=== PATIENT | female | born 1950 | race Caucasian/White ===

== ENCOUNTER → 2017-06-18 | Outpatient (CLI) | payer OTHER | END | disposition home or self-care (01) | LOC: RAH 12:19 | PROVIDERS: ATTEND Obstetrics & Gynecology | DX: Z12.31 Encounter for screening mammogram for malignant neoplasm of breast (principal) | CPT/HCPCS: 77067 ==

== ENCOUNTER → 2020-03-31 | Outpatient (CLI) | payer OTHER | END | disposition home or self-care (01) | LOC: RAH 11:13 | PROVIDERS: ATTEND Obstetrics & Gynecology | DX: Z12.31 Encounter for screening mammogram for malignant neoplasm of breast (principal) | CPT/HCPCS: 77067 ==

== ENCOUNTER 2020-04-20 08:14 | Day surgery (SDC) | payer OTHER ==
[2020-04-19 11:56] LABS: BASOPHILS % (AUTO) 0.8 % (0.0-5.0); HEMATOCRIT 44.2 % (36-48); LYMPHOCYTES % (AUTO) 25.5 % (21.0-51.0); MEAN CORPUSCULAR HEMOGLOBIN 30.9 pg (27.0-33.0); MEAN CORPUSCULAR HGB CONC 32.8 g/dL (32.0-36.0); MEAN CORPUSCULAR VOLUME 94.2 fL (79-99); MONOCYTES % (AUTO) 5.6 % (3.0-13.0); NEUTROPHILS % (AUTO) 66.9 % (40.0-77.0); PLATELET COUNT (AUTO) 257 K/uL (130-400); RED BLOOD CELL COUNT(AUTO) 4.69 MIL/uL (4.00-5.50); RED CELL DISTRIBUTION WIDTH 13.2 % (11.0-15.5); WHITE BLOOD COUNT (AUTO) 8.3 K/uL (4.8-10.8)
[2020-04-19 12:07] LABS: CREATININE 0.9 mg/dL (0.5-1.5); POTASSIUM 4.4 mmol/L (3.5-5.1)
[2020-04-20] VITALS (20 sets, daily range): BP systolic 90–156; BP diastolic 48–93
[~2020-04-20] VITALS: Ht 152.4 cm; Wt 56.2 kg
[~2020-04-20 08:14] MED LIST: AMLO-257 PO; LACTATED RINGERS 1000ML 1,000 ML IV SCH; ROSU5TAB12 PO; SERT-438 PO
[2020-04-20] MEDS: CEFAZOLIN SODIUM 1 GM VIAL IVP SCH ×2 (09:30→11:20)
[2020-04-20] MEDS ORDERED: SUCCINYLCHOLINE CHLORIDE 20 MG/ML 10 ML VIAL ONE (10:51)
[2020-04-20] MEDS ORDERED: LIDOCAINE PF 100MG/5ML (2%) SYRINGE 5ML ONE (10:51)
[2020-04-20] MEDS ORDERED: GLYCOPYRROLATE 1 MG/5 ML SYRINGE ONE (10:52)
[2020-04-20] MEDS ORDERED: MIDAZOLAM HCL 1 MG/ML 2ML VIAL ONE (10:52)
[2020-04-20] MEDS ORDERED: DEXAMETHASONE SOD PHOSPHATE 10MG/ML 1ML VIAL ONE (10:52)
[2020-04-20] MEDS ORDERED: ROCURONIUM 10MG/1ML SYR 10 MG/ML ML ONE (10:52)
[2020-04-20] MEDS ORDERED: ONDANSETRON 4MG INJ ONE (10:52)
[2020-04-20] MEDS ORDERED: NEOSTIGMINE 5MG/5ML SYR IV ONE (10:52)
[2020-04-20] MEDS ORDERED: PROPOFOL 10 MG/ML 20ML VIAL IV ONE (10:52)
[2020-04-20] MEDS ORDERED: FENTANYL CITRATE PF 50 MCG/1 ML 2ML VIAL ONE (10:53)
[2020-04-20] MEDS ORDERED: EPHEDRINE SULFATE 50 MG/ML AMPULE ONE (11:19)
== END 2020-04-20 14:50 ==
LOC: DAH 08:14
PROVIDERS: ATTEND Orthopaedic Surgery
DX: M75.121 Complete rotator cuff tear or rupture of right shoulder, not specified as traumatic (principal); M19.011 Primary osteoarthritis, right shoulder; M75.51 Bursitis of right shoulder; I10 Essential (primary) hypertension; Z98.890 Other specified postprocedural states; Z79.899 Other long term (current) drug therapy; Z20.828 Contact with and (suspected) exposure to other viral communicable diseases
CPT/HCPCS: 29827; 36415; 64415; 76942; 80048; 85025; 93005; A4215; A4221; A4222; A4223; A4565; A4649 ×4; A4663; A4930; A5120; A6223; A6260; C1713 ×2; C9803; J0330; J0690; J1100; J2001; J2250; J2405; J2704; J2710; J3010; J3490 ×2; J7120; U0003

== ENCOUNTER → 2020-05-12 | Outpatient (CLI) | payer OTHER ==
[~2020-05-12] MED LIST changes: -LACTATED RINGERS 1000ML 1,000 ML IV SCH
== END | disposition home or self-care (01) ==
LOC: RAH 09:54
PROVIDERS: ATTEND Obstetrics & Gynecology
DX: R92.1 Mammographic calcification found on diagnostic imaging of breast (principal); R59.0 Localized enlarged lymph nodes; R92.0 Mammographic microcalcification found on diagnostic imaging of breast
CPT/HCPCS: 76641; 77065

== ENCOUNTER → 2022-04-03 | Outpatient (CLI) | payer OTHER | END | disposition home or self-care (01) | LOC: RAH 08:28 | PROVIDERS: ATTEND Obstetrics & Gynecology | DX: Z12.31 Encounter for screening mammogram for malignant neoplasm of breast (principal) | CPT/HCPCS: 77067 ==

== ENCOUNTER → 2023-05-09 | Outpatient (CLI) | payer OTHER | END | disposition home or self-care (01) | LOC: RAH 10:26 | PROVIDERS: ATTEND Obstetrics & Gynecology | DX: Z12.31 Encounter for screening mammogram for malignant neoplasm of breast (principal) | CPT/HCPCS: 77067 ==

== ENCOUNTER → 2024-02-11 | Outpatient (CLI) | payer OTHER ==
[~2024-02-11] MED LIST changes: +GADOTERATE MEGLUMINE 10 MMOL/20 ML VIAL IV ONE; -ROSU5TAB12 PO; +ROSU5TAB51 PO
--- NOTE | 2024-02-11 16:39 | HMCIMG ---
MRI BREAST WWO BILAT [facility] HISTORY: Microcalcifications and tenderness to left axilla COMPARISON: Mammogram from 05/09/2023 TECHNIQUE: MRI of the bilateral breasts was performed utilizing multiple pulse sequences in axial, coronal and sagittal planes. Patient was given 20 cc of Clariscan through intravenous route. Dynamic imaging technique was used. FINDINGS: Both breasts are moderately dense fibroglandular tissue. No definite MR evidence of mass lesion or abnormal enhancement is seen. No nipple retraction or skin thickening is seen. IMPRESSION: 1. Moderately dense breasts. No mass lesion or abnormal enhancement is seen. Yearly mammogram is recommended.
== END | disposition home or self-care (01) ==
LOC: RAH 13:37
PROVIDERS: ATTEND Internal Medicine
DX: R92.323 Mammographic fibroglandular density, bilateral breasts (principal); R92.0 Mammographic microcalcification found on diagnostic imaging of breast
CPT/HCPCS: C8908; A9575; 77049

== ENCOUNTER 2025-02-15 12:03 | Inpatient (IN) | payer OTHER ==
[~2025-02-15] VITALS: Ht 152.4 cm; Wt 55.3 kg
--- NOTE | 2025-02-15 12:09 | NUR ---
PATIENT IN ROOM
[2025-02-15 12:19] LABS: IMMATURE GRANULOCYTE ABSOLUTE 0.03 K/uL (0-1); NUCLEATED RED BLOOD CELLS 0.0 % (0.0-0.19); PLATELET COUNT (AUTO) 222 K/uL (130-400); RED BLOOD CELL COUNT(AUTO) 4.30 MIL/uL (4.00-5.50); RED CELL DISTRIBUTION WIDTH 13.0 % (11.0-15.5); WHITE BLOOD COUNT (AUTO) 8.3 K/uL (4.8-10.8)
[2025-02-15 12:33] LABS: CREATININE 1.0 mg/dL (0.5-1.0); GLOMERULAR FILTR. RATE CALC 58.0 mL/min (>90); GLUCOSE,RANDOM 130.0 mg/dL (70-105); SODIUM SERUM 140.0 mmol/L (136-145); UREA NITROGEN, BLOOD 15.0 mg/dL (7-18)
--- NOTE | 2025-02-15 12:40 | ERN ---
General Chief Complaint: Syncope Stated Complaint: SYNCOPE Time Seen by MD: 12:05 Source: patient History of Present Illness Initial Comments Patient is a 74-year-old female coming in after she had a syncopal episode today. Per patient she was standing hand all of the sudden she felt weak and passed out. She states he has been in her bottom did not hit her head. Allergies: Coded Allergies: No Known Drug Allergies (Verified Allergy, Unknown, 04/19/20) Home Meds Reported Medications Sertraline HCl (Sertraline HCl) 25 Mg Tablet, 25 MG PO DAILY, TAB 04/19/20 Rosuvastatin Calcium (Rosuvastatin Calcium) 5 Mg Tablet, 5 MG PO DAILY, TAB 04/19/20 Amlodipine Besylate (Amlodipine Besylate) 5 Mg Tablet, 5 MG PO DAILY, TAB 04/19/20 Past Medical History Past Medical History: GERD, High Cholesterol, Hypertension Past Surgical History: Appendectomy, Hysterectomy ROS Dictation CONSTITUTIONAL: No chills, no fever, no weakness, no diaphoresis, no malaise. HEAD/FACE: No signs of trauma. EENT: No eye pain, no blurred vision, no tearing, no double vision, no ear pain, no ear discharge, no nose pain, no nasal congestion, no throat pain, no throat swelling, no mouth pain. RESPIRATORY: No cough, no orthopnea, no SOB, no stridor, no wheezing. CARDIOVASCULAR: No chest pain, no edema, no palpitations, no syncope. GASTROINTESTINAL/ABDOMINAL: No abdominal pain, no constipation, no diarrhea, no nausea, no vomiting. GENITOURINARY: No abnormal discharge, no dysuria, no frequent urination, no hematuria. No complaints of pain in the genitals. MUSCULOSKELETAL: No back pain, no gout, no joint pain, no joint swelling, no muscle pain, no muscle stiffness, no neck pain. INTEGUMENTARY: No change in color, no change in hair/nails, no dryness, no lesion, no lumps, no rash. NEUROLOGICAL/PSYCH: No anxiety, not depressed, no emotional problem, no headache, no numbness, no pre-existing deficit, no history of seizures, no tremors, no weakness. HEMATOLOGIC/LYMPHATIC: Not anemic, no history of blood clots, no apparent bleeding, no bruising, glands not swollen. All Systems Negative, Except as Noted. Physical Exam Physical Exam Dictation VITAL SIGNS: Reviewed. GENERAL APPEARANCE: Alert, oriented x3, no acute distress, obese. HEAD AND FACE: Non-traumatic. EYES: PERRL, pink conjunctivas, eyelid no trauma, anterior chamber clear. EARS: Pinnas intact and no signs of trauma or erythema. Ear canals clear and no discharge. TMs no erythema. NOSE: No discharge, no bleeding. OROPHARYNX: Mouth normal, teeth no caries, tongue pink. Pharynx clear, no erythema. Tonsils no exudates, no abscesses noted. Mucous membrane moist. NECK: Supple, non-tender, no thyromegaly, no masses, no JVD, no bruits. BREAST: Deferred. CHEST: No tenderness, no crepitus, no paradoxical movement, no retractions. LUNGS: Clear, well-ventilated, symmetric, no rales, no wheezing, no rhonchi, no stridor, good breath sounds bilaterally. HEART: Regular rate, regular rhythm, no murmur, no gallops. VASCULAR: No peripheral edema. ABDOMEN: Soft, positive bowel sounds, nondistended, no guarding, nontender, no rebound, no masses no hepatomegaly, no splenomegaly, no Munoz's sign, no hernias. RECTAL: Deferred. GENITAL: Deferred. NEUROLOGICAL: Normal speech, gross motor function intact, gross sensory function intact. MUSCULOSKELETAL: Neck nontender, full range of motion, back nontender, full range of motion. EXTREMITIES: Nontender, full range of motion. SKIN: Color pink, dry, no turgor, no rash, no lacerations, no abrasions, no contusions. LYMPHATICS: Deferred. Results Laboratory and Microbiology Lab and Micro Result Laboratory Tests Test 02/15/25 12:14 02/15/25 12:40 White Blood Count 8.3 K/uL (4.8-10.8) Red Blood Count 4.30 MIL/uL (4.00-5.50) Hemoglobin 13.3 g/dL (12.0-16.0) Hematocrit 40.3 % (36-48) Mean Corpuscular Volume 93.7 fL (79-99) Mean Corpuscular Hemoglobin 30.9 pg (27.0-33.0) Mean Corpuscular Hemoglobin Concent 33.0 g/dL (32.0-36.0) Red Cell Distribution Width 13.0 % (11.0-15.5) Platelet Count 222 K/uL (130-400) Mean Platelet Volume 10.9 fL (7.5-10.5) H Immature Granulocyte % (Auto) 0.4 % (0-1) Neutrophils (%) (Auto) 54.7 % (40.0-77.0) Lymphocytes (%) (Auto) 34.2 % (21.0-51.0) Monocytes (%) (Auto) 7.4 % (3.0-13.0) Eosinophils (%) (Auto) 2.3 % (0.0-8.0) Basophils (%) (Auto) 1.0 % (0.0-5.0) Neutrophils # (Auto) 4.6 K/uL (1.8-7.7) Lymphocytes # (Auto) 2.9 K/uL (1.0-4.8) Monocytes # (Auto) 0.6 K/uL (0.1-1.0) Eosinophils # (Auto) 0.19 K/uL (0.00-0.70) Basophils # (Auto) 0.08 K/uL (0.00-0.20) Absolute Immature Granulocyte (auto 0.03 K/uL (0-1) Nucleated Red Blood Cells 0.0 % (0.0-0.19) Sodium Level 140 mmol/L (136-145) Potassium Level 3.9 mmol/L (3.5-5.1) Chloride Level 104 mmol/L (101-111) Carbon Dioxide Level 28 mmol/L (21-32) Blood Urea Nitrogen 15 mg/dL (7-18) Creatinine 1.0 mg/dL (0.5-1.0) Glomerular Filtration Rate Calc 58 mL/min (>90) Random Glucose 130 mg/dL (70-105) H Total Calcium 8.9 mg/dL (8.5-10.1) Magnesium Level 1.90 mg/dL (1.80-2.40) Troponin I High Sensitivity 6 ng/L (4-50) Urine Color YELLOW (YELLOW) Urine Appearance CLEAR (CLEAR) Urine pH 8.5 (5.0-8.0) H Urine Specific [place] 1.016 (1.001-1.031) Urine Protein 20 mg/dL (NEGATIVE) H Urine Glucose (UA) NEGATIVE mg/dL (NEGATIVE) Urine Ketones NEGATIVE mg/dL (NEGATIVE) Urine Occult Blood NEGATIVE (NEGATIVE) Urine Nitrate NEGATIVE (NEGATIVE) Urine Bilirubin NEGATIVE mg/dL (NEGATIVE) Urine Urobilinogen 0.2 mg/dL (0.2-1.0) Urine Leukocyte Esterase NEGATIVE Boris/uL Urine RBC 0-1 /HPF (0-1) Urine WBC 0-1 /HPF (0-1) Urine Squamous Epithelial Cells RARE /HPF (0-2) Urine Bacteria RARE /HPF (None Seen) Labs Reviewed?: Yes EKG/XRAY/US/CT/MRI EKG Comment 02/15/2025 time 12:02 p.m. Ventricular rate 44 Sinus bradycardia [place] [address] wave elevation or depression MDM MDM: Differential diagnosis: Syncope, bradycardia, Rationale: Tests considered and ordered secondary to shared decision making include: labs, ECG and radiology Previous outside records reviewed: Old ER visits. Risk of complication and/or morbidity or mortality of patient management: None Medications-Per medication reconciliation Need for hospitalization: Patient does meet criteria for hospitalization. Need for emergency major/minor surgery: No There are no social concerns with this patient. Prescription drug management Prescriptions will include symptomatic care Patient's prior external medical records from other ER visits were reviewed by me as indicated. Prior testing and results from previous visits were reviewed. Prior tests were taken into account with medical decision making and resource utilization, independent historian/historians were used to obtain complete medical history. I independently interpreted the test that were performed, results were reviewed by me and considered findings on radiology if ordered. Medical management and examination interpretation discussions were had by me with other qualified healthcare professionals as indicated for the patient's care. Patient will be admitted under the care of hospitalist group ED Course Orders Procedure Category Date Status Time Cbc With Differential LAB 02/15/25 Complete 12:05 Chest 1vw RAD 02/15/25 Resulted 12:05 12 Lead Ekg Tracing- EKG 02/15/25 Logged Technical 12:05 Magnesium LAB 02/15/25 Complete 12:05 Troponin I High LAB 02/15/25 Complete Sensitivity 12:05 Urinalysis Profile LAB 02/15/25 Complete 12:05 Basic Metabolic Panel LAB 02/15/25 Complete 12:05 Vital Signs Date Time Temp Pulse Resp B/P (MAP) Pulse Ox O2 Delivery O2 Flow Rate FiO2 12/9/25 12:04 97.9 44 16 126/52 98 Room Air 0 DX & DISP Disposition: Inpatient Decision to Admit Time: 13:34 Departure Impression: Primary Impression: Syncope and collapse Additional Impression: Bradycardia Condition: Stable Referrals: LISA KWON M.D. (PCP) HALIMA TRUONG MD Feb 15, 2025 12:40
[2025-02-15 13:06] LABS: APPEARANCE,URINE CLEAR (CLEAR); GLUCOSE, URINE (UA) NEGATIVE (NEGATIVE); LEUKOCYTE ESTERASE ,URINE NEGATIVE Leu/uL (NEGATIVE); NITRATE,URINE NEGATIVE (NEGATIVE); OCCULT BLOOD,URINE NEGATIVE (NEGATIVE)
[2025-02-15 13:07] LABS: ADD UA MICROSCOPIC YES
--- NOTE | 2025-02-15 13:09 | HMCIMG ---
EXAM: CR Chest, 1 View. CLINICAL HISTORY: cp COMPARISON: None provided. FINDINGS: LUNGS: There is no mass, infiltrate, or acute pulmonary abnormality. PLEURAL SPACES: No pleural effusion or pneumothorax. MEDIASTINUM: Cardiac size and mediastinal contours within normal limits. BONES: No aggressive appearing osseous lesion seen. IMPRESSION: No acute cardiopulmonary pathology is evident. /[place]
[2025-02-15 13:10] LABS: SQUAMOUS EPITHELIAL CELL,UR RARE /HPF (0-2)
--- NOTE | 2025-02-15 14:28 | EKG ---
[facility] Test Date: 2025-02-15 Test Time: 12:02:21 Pat Name: ERIN ACUÑA Department: [facility] Room: 310 Gender: F Dietist: [id number] : 1950 Requested By: HALIMA TRUONG Order Number: [id number] Reading MD: Jersey Kelley Measurements Intervals [place] Rate: 44 P: 24 [place]: 180 QRS: -9 QRSD: 104 T: 10 QT: 488 QTc: 419 Interpretive Statements Sinus bradycardia to 44 bpm Low voltage, precordial leads Compared to ECG 04/19/2020 11:48:00 Low QRS voltage now present Sinus rhythm no longer present Left ventricular hypertrophy no longer present ST (T wave) deviation no longer present Electronically Signed On 02-15-2025 20:18:37 [employer] by Jersey Kelley Please click the below link to view image of tracing.
[2025-02-15] MEDS: 0.9%NACL 1000ML 1,000 ML IV SCH (14:30)
--- NOTE | 2025-02-15 15:21 | HP ---
[facility] HISTORY AND PHYSICAL Date of Service: Feb 15, 2025 Time of Service: 15:12 HISTORY OF PRESENT ILLNESS: Date of service: 02/15/2025, patient was seen in ER room nine This is a 74-year-old female with underlying history of hypertension, hyperlipidemia, GERD who presented to the ER for further evaluation of dizziness and near-syncope. Patient states that she was outside today, talking with her neighbor went she felt lightheaded, dizzy, clammy and felt like she would faint all of a sudden. Patient denies completely blacking out. She felt nauseous and had an episode of vomiting. Patient denies any previous syncopal or presyncopal symptoms. Denies any cardiac comorbidities. She usually walks about a mile a day with no cardiac symptoms. Patient does report having history of hypertension and is maintained on outpatient treatment with amlodipine 5 mg daily. She denies any history of cardiac arrhythmias.. She reports having had issues with acid reflux for several months and is on outpatient treatment with famotidine PRN. Reports having had a upper endoscopy as outpatient close to may or June last year with Dr. Pedraza. Patient denies any fevers, chills, shortness of breath, denies any lower extremity swelling or pleurisy. EMS was called and patient received 200 bolus of NS. Patient on presentation to the hospital here was noted to be afebrile with T-max of 97.9 F, heart rate of 44, blood pressure of 126/52. Labs on presentation including CBC and BMP was unremarkable. EKG showed findings of sinus bradycardia in the 40s. Patient will be admitted under hospitalist service and will be placed on telemetry monitoring. Orthostatic vitals will be obtained. Due to presentation of near-syncope with bradycardia, consultation with Cardiology will be requested this admission. We will see how patient progresses in the next 24-48 hours. REVIEW OF SYSTEMS CONSTITUTIONAL: Denies fevers, chills, or night sweats. No unintentional weight loss reported. NEUROLOGICAL: Denies headache, amaurosis fugax, motor weakness, sensory deficit, vertigo/spinning sensation, gait abnormalities, or tremors. ENT: No hearing loss, otalgia, otorrhea, rhinitis, rhinorrhea, hoarseness, or sore throat. CARDIOVASCULAR: symptoms of near syncope today with dizziness, lightheadedness, patient denies any chest pain, shortness of breath, lower extremity edema PULMONARY: Denies any shortness of breath, cough, phlegm/sputum, hemoptysis, pleuritic chest pain. SLEEP: Denies morning headaches, daytime somnolence or napping. Denies difficulty falling asleep, staying asleep, waking from sleep. Denies knowledge of snoring. GASTROINTESTINAL: Denies any type of dysphagia to either liquids or solids. Denies nausea, vomiting, pyrosis, early satiety, abdominal pain, diarrhea, constipation, or changes in stool consistency or caliber. Denies coffee-ground emesis, hematemesis, hematochezia, or melanotic stools. GENITOURINARY: Denies frequency, urgency, nocturia, hematuria or incontinence (Storage/Irritative symptoms.) Low urinary stream, straining to void, urinary intermittency or hesitancy, splitting of the voiding stream, terminal dribbling. ENDOCRINOLOGIC: Denies polyuria, polydipsia, polyphagia or heat/cold intolerances. HEMATOLOGIC: Denies thrombophilia/previous clots, or coagulopathy/bleeding dis orders. ONCOLOGIC: Denies personal history of malignancy. DERMATOLOGIC: Denies rashes or pruritus. PSYCHIATRIC: Denies any suicidal or homicidal ideation. Denies hallucinations. PAST MEDICAL HISTORY: Hypertension, anxiety, hyperlipidemia, GERD PAST SURGICAL HISTORY: Previous history of appendectomy, hysterectomy, History of right shoulder rotator cuff surgery in [address] Garcia PAST SOCIAL HISTORY: Patient denies significant alcohol consumption or significant smoking history FAMILY HISTORY: Patient denies any family history of heart conditions Home medications: Sertraline 25 mg daily, rosuvastatin 5 mg daily, amlodipine 5 mg Coded Allergies: No Known Drug Allergies (Verified Allergy, Unknown, 04/19/20) PHYSICAL EXAM GENERAL APPEARANCE: The patient is awake, alert, and oriented, in no acute cardiopulmonary distress. NEUROLOGICAL: Cranial nerves II-XII grossly intact. Motor is 5/5 in bilateral upper and lower extremities proximal to distal. No sensory deficits. HEENT: Face is symmetric. Pupils are equal and reactive. Extraocular movements are intact. NECK: Supple. No JVD. No thyromegaly. No submental, submandibular, pre- /postauricular, occipital or supraclavicular lymphadenopathy. CHEST: Normal chest expansion. No Telemetry. LUNGS: Absence of any rales, rhonchi or any wheezing. CARDIOVASCULAR: Regular. S1 and S2 normal. No appreciable rubs, murmurs or gallops. ABDOMEN: Soft, nontender, and nondistended. There is no rebound, voluntary guarding, or rigidity. : Deferred. No [place]. EXTREMITIES: Non-edematous and not cyanotic. No clubbing. Good capillary refill. SKIN: No skin breakdown. Vital Sign (Last 24 Hours) 02/15/25 12:04 Temp 97.9 Pulse 44 Resp 16 B/P (MAP) 126/52 Pulse Ox 98 O2 Delivery Room Air O2 Flow Rate 0 LABS: Laboratory: Test 02/15/25 12:40 02/15/25 12:14 Range/Units Urine Color YELLOW YELLOW Urine Appearance CLEAR CLEAR Urine pH 8.5 H 5.0-8.0 Urine Specific [place] 1.016 1.001-1.031 Urine Protein 20 H NEGATIVE mg/dL Urine Glucose (UA) NEGATIVE NEGATIVE mg/dL Urine Ketones NEGATIVE NEGATIVE mg/dL Urine Occult Blood NEGATIVE NEGATIVE Urine Nitrate NEGATIVE NEGATIVE Urine Bilirubin NEGATIVE NEGATIVE mg/dL Urine Urobilinogen 0.2 0.2-1.0 mg/dL Urine Leukocyte Esterase NEGATIVE NEGATIVE Boris/uL Urine RBC 0-1 0-1 /HPF Urine WBC 0-1 0-1 /HPF Urine Squamous Epithelial Cells RARE 0-2 /HPF Urine Bacteria RARE None Seen /HPF White Blood Count 8.3 4.8-10.8 K/uL Red Blood Count 4.30 4.00-5.50 MIL/uL Hemoglobin 13.3 12.0-16.0 g/dL Hematocrit 40.3 36-48 % Mean Corpuscular Volume 93.7 79-99 fL Mean Corpuscular Hemoglobin 30.9 27.0-33.0 pg Mean Corpuscular Hemoglobin Concent 33.0 32.0-36.0 g/dL Red Cell Distribution Width 13.0 11.0-15.5 % Platelet Count 222 130-400 K/uL Mean Platelet Volume 10.9 H 7.5-10.5 fL Immature Granulocyte % (Auto) 0.4 0-1 % Neutrophils (%) (Auto) 54.7 40.0-77.0 % Lymphocytes (%) (Auto) 34.2 21.0-51.0 % Monocytes (%) (Auto) 7.4 3.0-13.0 % Eosinophils (%) (Auto) 2.3 0.0-8.0 % Basophils (%) (Auto) 1.0 0.0-5.0 % Neutrophils # (Auto) 4.6 1.8-7.7 K/uL Lymphocytes # (Auto) 2.9 1.0-4.8 K/uL Monocytes # (Auto) 0.6 0.1-1.0 K/uL Eosinophils # (Auto) 0.19 0.00-0.70 K/uL Basophils # (Auto) 0.08 0.00-0.20 K/uL Absolute Immature Granulocyte (auto 0.03 0-1 K/uL Nucleated Red Blood Cells 0.0 0.0-0.19 % Sodium Level 140 136-145 mmol/L Potassium Level 3.9 3.5-5.1 mmol/L Chloride Level 104 101-111 mmol/L Carbon Dioxide Level 28 21-32 mmol/L Blood Urea Nitrogen 15 7-18 mg/dL Creatinine 1.0 0.5-1.0 mg/dL Glomerular Filtration Rate Calc 58 >90 mL/min Random Glucose 130 H 70-105 mg/dL Hemoglobin A1c 5.9 4.0-6.0 % Estimated Average Glucose (eAG) 123 70-126 mg/dL Total Calcium 8.9 8.5-10.1 mg/dL Magnesium Level 1.90 1.80-2.40 mg/dL Troponin I High Sensitivity 6 4-50 ng/L Thyroid Stimulating Hormone (TSH) 3.19 0.36-3.74 uIU/mL Current Medications Medications (Trade) Dose Ordered Sig/Joao Route PRN Reason Start Time Stop Time Status Last Admin Dose Admin Acetaminophen (TYLenol 325MG TAB) 650 mg Q6H PRN PO MILD PAIN (1-3) 02/15/25 14:30 03/17/25 14:29 Amlodipine Besylate (NorvASC 5MG TAB) 5 mg DAILY PO 02/16/25 09:00 03/18/25 08:59 Famotidine (Pepcid 20mg Tab) 20 mg Q24H PO 02/15/25 21:00 03/17/25 20:59 Ondansetron HCl (zoFRAN 4MG INJ) 4 mg Q6H PRN IVP NAUSEA/VOMITING 02/15/25 14:30 03/17/25 14:29 Sodium Chloride 1,000 ml @ 50 mls/hr Q20H IV 02/15/25 14:30 03/17/25 14:29 DIAGNOSTICS / RADIOLOGY: SERVICE 1205 REASON: cp ORDERING PHYSICIAN: HALIMA TRUONG MD PROCEDURE: CXR1VW - CHEST 1VW EXAM: CR Chest, 1 View. CLINICAL HISTORY: cp COMPARISON: None provided. FINDINGS: LUNGS: There is no mass, infiltrate, or acute pulmonary abnormality. PLEURAL SPACES: No pleural effusion or pneumothorax. MEDIASTINUM: Cardiac size and mediastinal contours within normal limits. BONES: No aggressive appearing osseous lesion seen. IMPRESSION: No acute cardiopulmonary pathology is evident. /[place] DICTATED BY: LUCERO ROCK Jr., MD DATE: 02/15/251407 ELECTRONICALLY SIGNED BY: LUCERO ROCK Jr., MD DATE: 02/15/251407 ASSESSMENT: Near-syncope, POA Sinus bradycardia, POA History of hypertension, POA Hyperlipidemia, POA Anxiety, POA History of uncontrolled GERD, POA Hx of Osteporosis, POA PLAN: Patient will be admitted to medical-surgical floor under telemetry monitoring We will monitor closely for any malignant cardiac arrhythmia, we will monitor heart rate trend closely Consultation with Cardiology will be requested We will check a thyroid panel, obtain carotid ultrasound, obtain 2D echocardiogram We will keep patient on gentle IV hydration with NS at 50 mL/hour We will obtain orthostatic vitals and rule out orthostatic hypotension If orthostatics are negative, patient to continue with home medication of amlodipine 5 mg daily, continue with rosuvastatin 5 mg daily, sertraline 25 mg daily We will see how patient progresses in the next 24-48 hours, we will consider Holter monitoring as outpatient as well All labs will be repeated in the morning Patient reports having symptoms of significant acid reflux, she has been hesitant on using PPI due to concerns for osteoporosis, patient reports being diagnosed with osteoporosis as outpatient and has been maintained on zoledronic acid as outpatient. Discussed with patient that we will control symptoms of significant GERD with Protonix while inpatient and transition to scheduled Pepcid as outpatient. We will involve GI as well this admission. Date of service: 02/15/2025, Advanced Care Planning: Which of the following were discussed: Hospice care: Yes __ No _x_ Therapeutic options: Yes _x_ No __ Advance directives: Yes _x_ No __ Other discussions: Discussed with who?: Patient Voluntary nature of this service was explained to the patient? Yes _x_ No __ Amount of time spent: 20 minutes SILAS RIVERA MD Feb 15, 2025 15:21
--- NOTE | 2025-02-15 15:32 | NUR ---
ORTHOSTATIC VITAL SIGNS: LAYING: HR 61 02 99 BP 121/55 SITTING: HR 60 02 97 BP 137/65 STANDING: HR 67 O2 96 BP 129/66
--- NOTE | 2025-02-15 15:54 | NUR ---
DR. ROTHMAN AT BEDSIDE
--- NOTE | 2025-02-15 16:39 | CONS ---
GASTROENTEROLOGY CONSULTATION NOTE Date of Consultation: Feb 15, 2025 Time of Consultation: 16:39 History of Present Illness: This is a 74yo female with past medical history of HTN HLD and GERD who presented due to dizziness and near syncope. She reported N/V. She reports hx reflux for which takes pepcid prn. Cardiology following. We were called to rule out GI etiology. Review of Systems: CONSTITUTIONAL: No malaise or change in sensation of wellbeing. ENMT: No rhinorrhea, otorrhea, sinus pain, ear ache. CARDIOVASCULAR: No angina, palpitations, orthopnea or paroxysmal dyspnea. RESPIRATORY: No SOB. GASTROINTESTINAL: No abdominal pain, nausea, vomiting, diarrhea, hematemesis, melena or change in the patient's habitual bowel movements consistency/number. GENITOURINARY: No dysuria, hematuria or change in bladder continence. MUSCULOSKELETAL: No new muscle pain or decrease in muscular strength. No new joint swelling, redness or tenderness. SKIN: No new rash. Past Medical History: PAST MEDICAL HISTORY: Hypertension, anxiety, hyperlipidemia, GERD PAST SURGICAL HISTORY: Previous history of appendectomy, hysterectomy, History of right shoulder rotator cuff surgery in [address] Garcia PAST SOCIAL HISTORY: Patient denies significant alcohol consumption or significant smoking history FAMILY HISTORY: Patient denies any family history of heart conditions Home medications: Sertraline 25 mg daily, rosuvastatin 5 mg daily, amlodipine 5 mg Coded Allergies: No Known Drug Allergies (Verified Allergy, Unknown, 04/19/20) Physical Exam: GEN: Awake, alert, oriented in person, time and place, and in no acute distress. HEENT: No sinus tenderness. Tympanic membranes were not examined. No rhinorrhea. Oral pharyngeal mucosa is pink, moist and within normal limits. Neck is supple with no cervical lymphadenopathy, thyromegaly or JVD. CHEST: Inspection, palpation and percussion of the chest were unremarkable. Lung auscultation revealed normal breath sounds bilaterally. CARDIAC: PMI is within normal limits. Heart sounds are regular. Normal S1, S2. No gallop or murmur. ABD: Soft, non-tender and not distended. No peritoneal signs on palpation. No organomegaly. Normal bowel sounds. EXT: No cyanosis or clubbing. No edema. SKIN: Intact. No rashes. JOINTS: No evidence of synovitis or acute arthritis. NEURO: Alert and oriented to name, place and person. Cranial nerve examination is unremarkable. No focal motor deficits. Normal speech. Gait is normal. Strength is normal. Vital Sign (Last 24 Hours) 02/15/25 12:04 Temp 97.9 Pulse 44 Resp 16 B/P (MAP) 126/52 Pulse Ox 98 O2 Delivery Room Air O2 Flow Rate 0 Laboratory: [ ] Laboratory: Test 02/15/25 12:40 02/15/25 12:14 Range/Units Urine Color YELLOW YELLOW Urine Appearance CLEAR CLEAR Urine pH 8.5 H 5.0-8.0 Urine Specific [place] 1.016 1.001-1.031 Urine Protein 20 H NEGATIVE mg/dL Urine Glucose (UA) NEGATIVE NEGATIVE mg/dL Urine Ketones NEGATIVE NEGATIVE mg/dL Urine Occult Blood NEGATIVE NEGATIVE Urine Nitrate NEGATIVE NEGATIVE Urine Bilirubin NEGATIVE NEGATIVE mg/dL Urine Urobilinogen 0.2 0.2-1.0 mg/dL Urine Leukocyte Esterase NEGATIVE NEGATIVE Boris/uL Urine RBC 0-1 0-1 /HPF Urine WBC 0-1 0-1 /HPF Urine Squamous Epithelial Cells RARE 0-2 /HPF Urine Bacteria RARE None Seen /HPF White Blood Count 8.3 4.8-10.8 K/uL Red Blood Count 4.30 4.00-5.50 MIL/uL Hemoglobin 13.3 12.0-16.0 g/dL Hematocrit 40.3 36-48 % Mean Corpuscular Volume 93.7 79-99 fL Mean Corpuscular Hemoglobin 30.9 27.0-33.0 pg Mean Corpuscular Hemoglobin Concent 33.0 32.0-36.0 g/dL Red Cell Distribution Width 13.0 11.0-15.5 % Platelet Count 222 130-400 K/uL Mean Platelet Volume 10.9 H 7.5-10.5 fL Immature Granulocyte % (Auto) 0.4 0-1 % Neutrophils (%) (Auto) 54.7 40.0-77.0 % Lymphocytes (%) (Auto) 34.2 21.0-51.0 % Monocytes (%) (Auto) 7.4 3.0-13.0 % Eosinophils (%) (Auto) 2.3 0.0-8.0 % Basophils (%) (Auto) 1.0 0.0-5.0 % Neutrophils # (Auto) 4.6 1.8-7.7 K/uL Lymphocytes # (Auto) 2.9 1.0-4.8 K/uL Monocytes # (Auto) 0.6 0.1-1.0 K/uL Eosinophils # (Auto) 0.19 0.00-0.70 K/uL Basophils # (Auto) 0.08 0.00-0.20 K/uL Absolute Immature Granulocyte (auto 0.03 0-1 K/uL Nucleated Red Blood Cells 0.0 0.0-0.19 % Sodium Level 140 136-145 mmol/L Potassium Level 3.9 3.5-5.1 mmol/L Chloride Level 104 101-111 mmol/L Carbon Dioxide Level 28 21-32 mmol/L Blood Urea Nitrogen 15 7-18 mg/dL Creatinine 1.0 0.5-1.0 mg/dL Glomerular Filtration Rate Calc 58 >90 mL/min Random Glucose 130 H 70-105 mg/dL Hemoglobin A1c 5.9 4.0-6.0 % Estimated Average Glucose (eAG) 123 70-126 mg/dL Total Calcium 8.9 8.5-10.1 mg/dL Magnesium Level 1.90 1.80-2.40 mg/dL Troponin I High Sensitivity 6 4-50 ng/L Thyroid Stimulating Hormone (TSH) 3.19 0.36-3.74 uIU/mL Current Medications Medications (Trade) Dose Ordered Sig/Joao Route PRN Reason Start Time Stop Time Status Last Admin Dose Admin Acetaminophen (TYLenol 325MG TAB) 650 mg Q6H PRN PO MILD PAIN (1-3) 02/15/25 14:30 03/17/25 14:29 Amlodipine Besylate (NorvASC 5MG TAB) 5 mg DAILY PO 02/16/25 09:00 03/18/25 08:59 Famotidine (Pepcid 20mg Tab) 20 mg Q24H PO 02/15/25 21:00 02/15/25 16:11 DC Ondansetron HCl (zoFRAN 4MG INJ) 4 mg Q6H PRN IVP NAUSEA/VOMITING 02/15/25 14:30 03/17/25 14:29 Pantoprazole Sodium (PROTonix 40MG INJ) 40 mg Q24H IVP 02/15/25 16:30 03/17/25 16:29 Sertraline HCl (ZOloft 50 mg tab) 25 mg DAILY PO 02/16/25 09:00 1/9/26 08:59 Sodium Chloride 1,000 ml @ 50 mls/hr Q20H IV 02/15/25 14:30 03/17/25 14:29 02/15/25 14:30 50 MLS/HR Zolpidem Tartrate (AmbIEN) 5 mg HS PO 02/15/25 21:00 03/17/25 20:59 Diagnostics / Radiology: [COPY/PASTE HERE IF NO REPORTS PLEASE DELETE SECTION] Assessment: N/V Reflux HTN Plan: EGD in am Continue GI prophylaxis Advance diet as tolerated Avoid NSAIDs Antireflux measures Monitor H&H and transfuse as needed Call with questions, concerns or change in clinical status Patient to follow-up at clinic post discharge Thank you for this consult FREDERICK PERKINS VOLCANOLOGY PROFESSOR Feb 15, 2025 16:39
--- NOTE | 2025-02-15 16:41 | NUR ---
DCP:HOME Pt currently lives at home with her . Pt denies any DME, home health, or provider services. pt states that she is able to complete ADLs independently. PCP is the [facility] and uses [facility] for any RX needs. At DC pt will want to go home and family can assist with transportation.
--- NOTE | 2025-02-15 16:51 | CONS ---
[facility] CARDIOLOGY CONSULTATION REPORT Cardiology consultation note dictated for Nelson Kelley MD Date Patient Seen: Feb 15, 2025 Time of Visit: 16:37 Requesting Physician: Lennie Ca MD Reason for Consultation: Near-syncope, sinus bradycardia History of Present Illness: This is a 74-year-old female with a past medical history of hypertension, hyperlipidemia, GERD, and anxiety who presented to the ED with complaints of near-syncope. EMS reported heart rates in the 40s and was given 250mls of NS. Cardiology has been consulted for near-syncope and sinus bradycardia. The patient reported as she was getting ready to go for a walk with friends, she began to feel weak, dizzy, flushed, nauseous, and then fell to her knees and vomited. Presenting EKG demonstrated sinus bradycardia with a heart rate of 44bpm. Review of telemetry demonstrates sinus bradycardia/normal sinus rhythm with heart rates 50s to 60s. No AV jayne blocking agents noted. TSH was normal at 3.19. Cardiac enzyme was negative x1. Orthostatic vital signs were normal. Laying 121/55 mmHg, HR 61 Sitting 137/65 mmHg, HR 60 Standing 129/66 mmHg, HR 67 Past Medical History: As per HPI and summarized below Past Surgical History: Appendectomy Hysterectomy Right shoulder surgery Family History: The patient's mother had ovarian cancer. Social History: The patient lives with her . Habits: The patient denies alcohol, tobacco, or illicit drug use. Home Meds: Famotidine 40 mg daily Amlodipine 5 mg daily Ambien 5 mg nightly Sertraline 5 mg daily Rosuvastatin 5 mg daily Current Meds: Medications Dose Ordered Sig/Joao Start Time Stop Time Status Last Admin Acetaminophen 650 mg Q6H PRN 02/15/25 14:30 03/17/25 14:29 Ondansetron HCl 4 mg Q6H PRN 02/15/25 14:30 03/17/25 14:29 Amlodipine Besylate 5 mg DAILY 02/16/25 09:00 03/18/25 08:59 Sodium Chloride 1,000 ml @ 50 mls/hr Q20H 02/15/25 14:30 03/17/25 14:29 Sertraline HCl 25 mg DAILY 02/16/25 09:00 03/18/25 08:59 Pantoprazole Sodium 40 mg Q24H 02/15/25 16:30 03/17/25 16:29 Zolpidem Tartrate 5 mg HS 02/15/25 21:00 03/17/25 20:59 Review of Systems: CONST: No fever, fatigue, or weight changes. EYES: No recent vision problems. ENT: No congestion, ear pain, or sore throat. C/V: No chest pain, palpitations, or edema. RESP: No cough, congestion, wheezing or shortness of breath. GI: No abdominal pain, nausea, vomiting, constipation, or diarrhea. : No incontinence or dysuria. SKIN: No rash. NEURO: No headache, focal numbness or weakness, dizziness, or seizures. PSYCH: No depression or anxiety. HEME: No abnormal bruising or bleeding. LYMPH: No swollen glands. Physical Examination: GENERAL: No acute distress. HEAD: Normal with no signs of head trauma. EYES: PERRLA, EOMI, conjunctiva and sclera normal. ENT: Hearing grossly intact, normal oropharynx. NECK: Supple without JVD. There is no tenderness, lymphadenopathy, or masses. No thyromegaly. Normal carotid upstrokes without bruits. LUNGS: Clear breath sounds bilaterally. No wheezes, or rhonchi. HEART: Normal rate and rhythm. Normal S1 and S2 without murmurs, gallop or rub. VASC: Peripheral pulses +2 bilaterally. ABD: Bowel sounds normal, soft, nontender, no masses, no organomegaly. No audible bruits. : Not examined LYMPH: No lymphadenopathy noted. EXT: No clubbing, cyanosis or edema. SKIN: No rashes or lesions noted. NEURO: Awake, alert, and oriented x3. No focal sensory or strength deficits noted. Vital Signs (last 8hr) Date Time Temp Pulse Resp B/P (MAP) Pulse Ox O2 Delivery O2 Flow Rate FiO2 02/15/25 12:04 97.9 44 16 126/52 98 Room Air 0 Laboratory: Hematology Labs: Test 02/15/25 12:14 Range/Units White Blood Count 8.3 4.8-10.8 K/uL Red Blood Count 4.30 4.00-5.50 MIL/uL Hemoglobin 13.3 12.0-16.0 g/dL Hematocrit 40.3 36-48 % Mean Corpuscular Volume 93.7 79-99 fL Mean Corpuscular Hemoglobin 30.9 27.0-33.0 pg Mean Corpuscular Hemoglobin Concent 33.0 32.0-36.0 g/dL Red Cell Distribution Width 13.0 11.0-15.5 % Platelet Count 222 130-400 K/uL Mean Platelet Volume 10.9 H 7.5-10.5 fL Immature Granulocyte % (Auto) 0.4 0-1 % Neutrophils (%) (Auto) 54.7 40.0-77.0 % Lymphocytes (%) (Auto) 34.2 21.0-51.0 % Monocytes (%) (Auto) 7.4 3.0-13.0 % Eosinophils (%) (Auto) 2.3 0.0-8.0 % Basophils (%) (Auto) 1.0 0.0-5.0 % Neutrophils # (Auto) 4.6 1.8-7.7 K/uL Lymphocytes # (Auto) 2.9 1.0-4.8 K/uL Monocytes # (Auto) 0.6 0.1-1.0 K/uL Eosinophils # (Auto) 0.19 0.00-0.70 K/uL Basophils # (Auto) 0.08 0.00-0.20 K/uL Absolute Immature Granulocyte (auto 0.03 0-1 K/uL Nucleated Red Blood Cells 0.0 0.0-0.19 % Chemistry Labs: Test 02/15/25 12:14 Range/Units Sodium Level 140 136-145 mmol/L Potassium Level 3.9 3.5-5.1 mmol/L Chloride Level 104 101-111 mmol/L Carbon Dioxide Level 28 21-32 mmol/L Blood Urea Nitrogen 15 7-18 mg/dL Creatinine 1.0 0.5-1.0 mg/dL Glomerular Filtration Rate Calc 58 >90 mL/min Random Glucose 130 H 70-105 mg/dL Hemoglobin A1c 5.9 4.0-6.0 % Estimated Average Glucose (eAG) 123 70-126 mg/dL Total Calcium 8.9 8.5-10.1 mg/dL Magnesium Level 1.90 1.80-2.40 mg/dL Troponin I High Sensitivity 6 4-50 ng/L Thyroid Stimulating Hormone (TSH) 3.19 0.36-3.74 uIU/mL Diagnostics / Radiology: Impression and Plan: Near-syncope: Symptomatic sinus bradycardia to 44 beats per minute: Possible vasovagal induced bradycardia in the setting of severe gastroesophageal reflux and likely esophagitis: -Gastric reflux may have caused a vagal reflex inducing near-syncope -Recommend IV PPI -2D Echocardiogram and carotid Doppler are pending -Telemetry monitoring 24 hours, and outpatient two week MCT monitor. Cleared for discharge tomorrow if no further bradycardia. -TSH was normal at 3.2 Gastroesophageal reflux: Possible esophagitis: -High dose PPI therapy and consider GI consultation Comorbidities: Hypertension Hyperlipidemia Anxiety PHYSICIAN ATTESTATION OF PHYSICIAN CARDROOM MANAGER DOCUMENTATION: I attest that I was physically present for the ely portions of the service and evaluated the patient with the Physician Zinc Skimmer, and I reviewed and discussed the case with the Physician Zinc Skimmer and made modifications to the Physician Zinc Skimmer's findings and plans of care as documented above AGUSTIN VALIENTE Feb 15, 2025 16:51 NELSON KELLEY MD Feb 15, 2025 17:33
--- NOTE | 2025-02-15 17:26 | HMCIMG ---
STUDY: US Duplex Bilateral Carotid and Vertebral Arteries HISTORY: Presyncope today; evaluation for possible significant carotid artery stenosis. TECHNIQUE: Real-time duplex ultrasound of the bilateral carotid and vertebral arteries performed with 2-D ferguson scale imaging, color Doppler flow, and spectral waveform analysis. COMPARISON: None available. FINDINGS: RIGHT COMMON CAROTID ARTERY (CCA): No occlusion or hemodynamically significant stenosis. Peak systolic velocity (PSV) approximately 57 cm/sec. Vessel is tortuous. Calcified plaque noted at the carotid bulb region extending into the proximal internal carotid artery causing estimated 1020% stenosis. RIGHT INTERNAL CAROTID ARTERY (ICA): No occlusion or significant stenosis. PSV approximately 81 cm/sec. ICA/CCA ratio 1.4, within normal limits. RIGHT EXTERNAL CAROTID ARTERY (ECA): No occlusion or significant stenosis. PSV approximately 62 cm/sec. RIGHT VERTEBRAL ARTERY: Antegrade flow with a peak velocity of approximately 38 cm/sec. LEFT COMMON CAROTID ARTERY: No occlusion or significant stenosis. PSV approximately 76 cm/sec. Calcified plaque identified in carotid bulb causing mild narrowing estimated at 1020%. LEFT INTERNAL CAROTID ARTERY: No occlusion or significant stenosis. PSV approximately 69 cm/sec. ICA/CCA ratio of 0.9, within normal limits. LEFT EXTERNAL CAROTID ARTERY: No occlusion or significant stenosis. PSV approximately 89 cm/sec. LEFT VERTEBRAL ARTERY: Antegrade flow with peak velocity approximately 66 cm/sec. SOFT TISSUES: No incidental abnormalities identified. IMPRESSION: * No hemodynamically significant carotid artery stenosis detected by NASCET velocity criteria. * Bilateral calcified plaques at carotid bulbs extending into proximal internal carotid arteries causing mild (1020%) luminal narrowing. * Tortuous right internal carotid artery without flow-limiting stenosis. /[place]
--- NOTE | 2025-02-15 18:36 | NUR ---
REPORT GIVEN TO NURSE SMITH
[2025-02-15 20:00] VITALS: BP 133/69; PULSE 60; RESP 18; TEMP 97.9; O2SAT 98
[2025-02-15] MEDS ORDERED: FAMOTIDINE 20MG TAB PO SCH (21:00)
[2025-02-16] VITALS (17 sets, daily range): BP systolic 109–156; BP diastolic 56–77; PULSE 57–78; RESP 16–18; TEMP 97.6–98.3; O2SAT 95
[2025-02-16 05:25] LABS: IMMATURE GRANULOCYTE ABSOLUTE 0.02 K/uL (0-1); NUCLEATED RED BLOOD CELLS 0.0 % (0.0-0.19); PLATELET COUNT (AUTO) 202 K/uL (130-400); RED BLOOD CELL COUNT(AUTO) 4.25 MIL/uL (4.00-5.50); RED CELL DISTRIBUTION WIDTH 13.1 % (11.0-15.5); WHITE BLOOD COUNT (AUTO) 8.3 K/uL (4.8-10.8)
[2025-02-16 05:37] LABS: INR 1.03 (0.85-1.15)
[2025-02-16 05:42] LABS: ASPARTATE AMINOTRANSFERASE 16.0 U/L (10-37); CREATININE 0.8 mg/dL (0.5-1.0); GLOMERULAR FILTR. RATE CALC 76.0 mL/min (>90); GLUCOSE,RANDOM 97.0 mg/dL (70-105); SODIUM SERUM 143.0 mmol/L (136-145); TOTAL PROTEIN, SERUM 6.3 g/dL (6.0-8.3); UREA NITROGEN, BLOOD 12.0 mg/dL (7-18)
[2025-02-16] MEDS: amLODIPine 5 MG TAB PO SCH (09:00)
[2025-02-16] MEDS ORDERED: GLYCOPYRROLATE 0.2 MG/ML 5 ML VIAL ONE (09:25)
[2025-02-16] MEDS ORDERED: LIDOCAINE PF 100MG/5ML (2%) SYRINGE 5ML ONE (09:25)
--- NOTE | 2025-02-16 09:31 | PN ---
[facility] CARDIOLOGY PROGRESS NOTE Date Patient Seen: Feb 16, 2025 Time of Visit: 09:26 Interval History: This is a 74-year-old female with a past medical history of hypertension, hyperlipidemia, GERD, and anxiety who presented to the ED with complaints of ne ar-syncope. EMS reported heart rates in the 40s and was given 250mls of NS. The patient reported as she was getting ready to go for a walk with friends, she began to feel weak, dizzy, flushed, nauseous, and then fell to her knees and vomited. Presenting EKG demonstrated sinus bradycardia with a heart rate of 44bpm. Review of telemetry demonstrates sinus bradycardia/normal sinus rhythm with heart rates 50s to 60s. No AV jayne blocking agents noted. TSH was normal at 3.19. Cardiac enzyme was negative x1. Orthostatic vital signs were normal. Heart rates overnight have been in the 40-50 beat per minute range and no pauses reported by nursing staff. She is currently undergoing an EGD. Her is at the bedside and reports there have been no acute events overnight and the patient offered no complaints. Echocardiogram is pending. A bilateral carotid Doppler from 02/15/2025 demonstrated no significant carotid artery disease. Physical Examination: No assessment, patient is undergoing an EGD Laboratory: Hematology Labs: Test 02/16/25 05:20 Range/Units White Blood Count 8.3 4.8-10.8 K/uL Red Blood Count 4.25 4.00-5.50 MIL/uL Hemoglobin 12.9 12.0-16.0 g/dL Hematocrit 40.2 36-48 % Mean Corpuscular Volume 94.6 79-99 fL Mean Corpuscular Hemoglobin 30.4 27.0-33.0 pg Mean Corpuscular Hemoglobin Concent 32.1 32.0-36.0 g/dL Red Cell Distribution Width 13.1 11.0-15.5 % Platelet Count 202 130-400 K/uL Mean Platelet Volume 10.8 H 7.5-10.5 fL Immature Granulocyte % (Auto) 0.2 0-1 % Neutrophils (%) (Auto) 61.6 40.0-77.0 % Lymphocytes (%) (Auto) 28.8 21.0-51.0 % Monocytes (%) (Auto) 7.0 3.0-13.0 % Eosinophils (%) (Auto) 1.8 0.0-8.0 % Basophils (%) (Auto) 0.6 0.0-5.0 % Neutrophils # (Auto) 5.1 1.8-7.7 K/uL Lymphocytes # (Auto) 2.4 1.0-4.8 K/uL Monocytes # (Auto) 0.6 0.1-1.0 K/uL Eosinophils # (Auto) 0.15 0.00-0.70 K/uL Basophils # (Auto) 0.05 0.00-0.20 K/uL Absolute Immature Granulocyte (auto 0.02 0-1 K/uL Nucleated Red Blood Cells 0.0 0.0-0.19 % Chemistry Labs: Test 02/16/25 05:20 02/15/25 12:14 Range/Units Sodium Level 143 136-145 mmol/L Potassium Level 3.7 3.5-5.1 mmol/L Chloride Level 108 101-111 mmol/L Carbon Dioxide Level 26 21-32 mmol/L Blood Urea Nitrogen 12 7-18 mg/dL Creatinine 0.8 0.5-1.0 mg/dL Glomerular Filtration Rate Calc 76 >90 mL/min Random Glucose 97 70-105 mg/dL Total Calcium 8.3 L 8.5-10.1 mg/dL Total Bilirubin 0.4 0.2-1.0 mg/dL Aspartate Amino Transf (AST/SGOT) 16 10-37 U/L Alanine Aminotransferase (ALT/SGPT) 21 12-78 U/L Alkaline Phosphatase 48 L 50-136 U/L Total Protein 6.3 6.0-8.3 g/dL Albumin 3.4 L 3.5-5.0 g/dL Hemoglobin A1c 5.9 4.0-6.0 % Estimated Average Glucose (eAG) 123 70-126 mg/dL Magnesium Level 1.90 1.80-2.40 mg/dL Troponin I High Sensitivity 6 4-50 ng/L Thyroid Stimulating Hormone (TSH) 3.19 0.36-3.74 uIU/mL Coagulation Labs: Test 02/16/25 05:20 Range/Units Prothrombin Time 10.9 9.6-11.6 SEC Prothromb Time International Ratio 1.03 0.85-1.15 Activated Partial Thromboplast Time 24.9 L 26.3-35.5 SEC Diagnostics / Radiology: : US Duplex Bilateral Carotid and Vertebral Arteries 02/15/2025: FINDINGS: RIGHT COMMON CAROTID ARTERY (CCA): No occlusion or hemodynamically significant stenosis. Peak systolic velocity (PSV) approximately 57 cm/sec. Vessel is tortuous. Calcified plaque noted at the carotid bulb region extending into the proximal internal carotid artery causing estimated 1020% stenosis. RIGHT INTERNAL CAROTID ARTERY (ICA): No occlusion or significant stenosis. PSV approximately 81 cm/sec. ICA/CCA ratio 1.4, within normal limits. RIGHT EXTERNAL CAROTID ARTERY (ECA): No occlusion or significant stenosis. PSV approximately 62 cm/sec. RIGHT VERTEBRAL ARTERY: Antegrade flow with a peak velocity of approximately 38 cm/sec. LEFT COMMON CAROTID ARTERY: No occlusion or significant stenosis. PSV approximately 76 cm/sec. Calcified plaque identified in carotid bulb causing mild narrowing estimated at 1020%. LEFT INTERNAL CAROTID ARTERY: No occlusion or significant stenosis. PSV approximately 69 cm/sec. ICA/CCA ratio of 0.9, within normal limits. LEFT EXTERNAL CAROTID ARTERY: No occlusion or significant stenosis. PSV approximately 89 cm/sec. LEFT VERTEBRAL ARTERY: Antegrade flow with peak velocity approximately 66 cm/sec. SOFT TISSUES: No incidental abnormalities identified. IMPRESSION: * No hemodynamically significant carotid artery stenosis detected by NASCET velocity criteria. * Bilateral calcified plaques at carotid bulbs extending into proximal internal carotid arteries causing mild (1020%) luminal narrowing. * Tortuous right internal carotid artery without flow-limiting stenosis. /[place] Impression and Plan: Near-syncope: Symptomatic sinus bradycardia to 44 beats per minute: Possible vasovagal induced bradycardia in the setting of severe gastroesophageal reflux and likely esophagitis: -Gastric reflux may have caused a vagal reflex inducing near-syncope -2D Echocardiogram is pending -telemetry overnight has demonstrated a heart rate in the 50 beat per minute range primarily. -continue telemetry and order a2 week cardiac mobile radiation monitor as an outpatient on discharge -TSH was normal at 3.2 Gastroesophageal reflux: Possible esophagitis: -High dose PPI therapy -the patient is currently undergoing an EGD Comorbidities: Hypertension Hyperlipidemia PHYSICIAN ATTESTATION OF PHYSICIAN CERTIFIED CODER DOCUMENTATION: I attest that I reviewed and discussed the case with the Physician Public Employment Mediator and made modifications to the Physician Public Employment Mediator's findings and plans of care as documented above SARAH MTZ Feb 16, 2025 09:31 NELSON ROTHMAN MD Feb 17, 2025 10:02
--- NOTE | 2025-02-16 12:38 | PN ---
[facility] PROGRESS NOTE Date of Service: Feb 16, 2025 Time of Service: 12:32 Dr. Nesbitt SUBJECTIVE: [02/15 This is a 74-year-old female with underlying history of hypertension, hyperlipidemia, GERD who presented to the ER for further evaluation of dizziness and near-syncope. Patient states that she was outside today, talking with her neighbor went she felt lightheaded, dizzy, clammy and felt like she would faint all of a sudden. Patient denies completely blacking out. She felt nauseous and had an episode of vomiting. Patient denies any previous syncopal or presyncopal symptoms. Denies any cardiac comorbidities. She usually walks about a mile a day with no cardiac symptoms. Patient does report having history of hypertension and is maintained on outpatient treatment with amlodipine 5 mg daily. She denies any history of cardiac arrhythmias.. She reports having had issues with acid reflux for several months and is on outpatient treatment with famotidine PRN. Reports having had a upper endoscopy as outpatient close to may or June last year with Dr. Pedraza. Patient denies any fevers, chills, shortness of breath, denies any lower extremity swelling or pleurisy. 02/16 patient was seen by nurse practitioner physician during rounding in room 310. Patient was evaluated by the firer helper and per their recommendation evaluate the gastric reflux may have caused a vagal reflex inducing near syncope. 2D echo is pending. Continue telemetry and order two week cardiac mobile security operations center operator as outpatient on discharge. Patient is also s/p EGD today 02/16/2025 as ordered by GI. EGD showed normal proximal esophagus. No rmal distal esophagus biopsy. Gastritis, biopsied, normal duodenal bulb and 2nd portion of the duodenum. Biopsy. Patient may return to the hospital on ongoing care. Advance diet as tolerated. Continue to monitor the patient in the meantime. A.m. labs.] REVIEW OF SYSTEMS CONSTITUTIONAL: Denies fevers, chills, or night sweats. No unintentional weight loss reported. NEUROLOGICAL: Denies headache, amaurosis fugax, motor weakness, sensory deficit, vertigo/spinning sensation, gait abnormalities, or tremors. ENT: No hearing loss, otalgia, otorrhea, rhinitis, rhinorrhea, hoarseness, or sore throat. CARDIOVASCULAR: symptoms of near syncope today with dizziness, lightheadedness, patient denies any chest pain, shortness of breath, lower extremity edema PULMONARY: Denies any shortness of breath, cough, phlegm/sputum, hemoptysis, pleuritic chest pain. SLEEP: Denies morning headaches, daytime somnolence or napping. Denies difficulty falling asleep, staying asleep, waking from sleep. Denies knowledge of snoring. GASTROINTESTINAL: Denies any type of dysphagia to either liquids or solids. Denies nausea, vomiting, pyrosis, early satiety, abdominal pain, diarrhea, constipation, or changes in stool consistency or caliber. Denies coffee-ground emesis, hematemesis, hematochezia, or melanotic stools. GENITOURINARY: Denies frequency, urgency, nocturia, hematuria or incontinence (Storage/Irritative symptoms.) Low urinary stream, straining to void, urinary intermittency or hesitancy, splitting of the voiding stream, terminal dribbling. ENDOCRINOLOGIC: Denies polyuria, polydipsia, polyphagia or heat/cold intolerances. HEMATOLOGIC: Denies thrombophilia/previous clots, or coagulopathy/bleeding disorders. ONCOLOGIC: Denies personal history of malignancy. DERMATOLOGIC: Denies rashes or pruritus. PSYCHIATRIC: Denies any suicidal or homicidal ideation. Denies hallucinations. PHYSICAL EXAM GENERAL APPEARANCE: The patient is awake, alert, and oriented, in no acute cardiopulmonary distress. NEUROLOGICAL: Cranial nerves II-XII grossly intact. Motor is 5/5 in bilateral upper and lower extremities proximal to distal. No sensory deficits. HEENT: Face is symmetric. Pupils are equal and reactive. Extraocular movements are intact. NECK: Supple. No JVD. No thyromegaly. No submental, submandibular, pre- /postauricular, occipital or supraclavicular lymphadenopathy. CHEST: Normal chest expansion. No Telemetry. LUNGS: Absence of any rales, rhonchi or any wheezing. CARDIOVASCULAR: Regular. S1 and S2 normal. No appreciable rubs, murmurs or gallops. ABDOMEN: Soft, nontender, and nondistended. There is no rebound, voluntary guarding, or rigidity. : Deferred. No Wilson. EXTREMITIES: Non-edematous and not cyanotic. No clubbing. Good capillary refill. SKIN: No skin breakdown. Vital Signs (last 8hr) Date Time Temp Pulse Resp B/P (MAP) Pulse Ox O2 Delivery O2 Flow Rate FiO2 02/16/25 11:45 69 17 131/72 96 Room Air 02/16/25 11:15 68 17 144/62 95 Room Air 02/16/25 11:00 75 17 127/75 97 Room Air 02/16/25 10:45 73 17 112/70 97 Room Air 02/16/25 10:30 97.9 72 16 132/63 96 Room Air 02/16/25 10:30 98.1 68 17 117/66 95 Room Air 02/16/25 10:25 74 16 127/67 95 Room Air 02/16/25 10:20 78 17 117/66 96 Room Air 02/16/25 10:15 75 17 127/61 97 Room Air 02/16/25 10:10 78 16 116/67 97 Room Air 02/16/25 10:05 77 17 115/61 99 Nonrebreathing Mask 10.0 02/16/25 10:00 97.5 78 16 109/56 99 Nonrebreathing Mask 10.0 02/16/25 09:48 Mask 10.0 02/16/25 09:48 Mask 02/16/25 07:44 98.2 61 18 132/72 95 Room Air LABS: Laboratory: Test 02/16/25 05:20 02/15/25 12:40 02/15/25 12:14 Range/Units White Blood Count 8.3 4.8-10.8 K/uL Red Blood Count 4.25 4.00-5.50 MIL/uL Hemoglobin 12.9 12.0-16.0 g/dL Hematocrit 40.2 36-48 % Mean Corpuscular Volume 94.6 79-99 fL Mean Corpuscular Hemoglobin 30.4 27.0-33.0 pg Mean Corpuscular Hemoglobin Concent 32.1 32.0-36.0 g/dL Red Cell Distribution Width 13.1 11.0-15.5 % Platelet Count 202 130-400 K/uL Mean Platelet Volume 10.8 H 7.5-10.5 fL Immature Granulocyte % (Auto) 0.2 0-1 % Neutrophils (%) (Auto) 61.6 40.0-77.0 % Lymphocytes (%) (Auto) 28.8 21.0-51.0 % Monocytes (%) (Auto) 7.0 3.0-13.0 % Eosinophils (%) (Auto) 1.8 0.0-8.0 % Basophils (%) (Auto) 0.6 0.0-5.0 % Neutrophils # (Auto) 5.1 1.8-7.7 K/uL Lymphocytes # (Auto) 2.4 1.0-4.8 K/uL Monocytes # (Auto) 0.6 0.1-1.0 K/uL Eosinophils # (Auto) 0.15 0.00-0.70 K/uL Basophils # (Auto) 0.05 0.00-0.20 K/uL Absolute Immature Granulocyte (auto 0.02 0-1 K/uL Nucleated Red Blood Cells 0.0 0.0-0.19 % Prothrombin Time 10.9 9.6-11.6 SEC Prothromb Time International Ratio 1.03 0.85-1.15 Activated Partial Thromboplast Time 24.9 L 26.3-35.5 SEC Sodium Level 143 136-145 mmol/L Potassium Level 3.7 3.5-5.1 mmol/L Chloride Level 108 101-111 mmol/L Carbon Dioxide Level 26 21-32 mmol/L Blood Urea Nitrogen 12 7-18 mg/dL Creatinine 0.8 0.5-1.0 mg/dL Glomerular Filtration Rate Calc 76 >90 mL/min Random Glucose 97 70-105 mg/dL Total Calcium 8.3 L 8.5-10.1 mg/dL Total Bilirubin 0.4 0.2-1.0 mg/dL Aspartate Amino Transf (AST/SGOT) 16 10-37 U/L Alanine Aminotransferase (ALT/SGPT) 21 12-78 U/L Alkaline Phosphatase 48 L 50-136 U/L Total Protein 6.3 6.0-8.3 g/dL Albumin 3.4 L 3.5-5.0 g/dL Urine Color YELLOW YELLOW Urine Appearance CLEAR CLEAR Urine pH 8.5 H 5.0-8.0 Urine Specific [place] 1.016 1.001-1.031 Urine Protein 20 H NEGATIVE mg/dL Urine Glucose (UA) NEGATIVE NEGATIVE mg/dL Urine Ketones NEGATIVE NEGATIVE mg/dL Urine Occult Blood NEGATIVE NEGATIVE Urine Nitrate NEGATIVE NEGATIVE Urine Bilirubin NEGATIVE NEGATIVE mg/dL Urine Urobilinogen 0.2 0.2-1.0 mg/dL Urine Leukocyte Esterase NEGATIVE NEGATIVE Boris/uL Urine RBC 0-1 0-1 /HPF Urine WBC 0-1 0-1 /HPF Urine Squamous Epithelial Cells RARE 0-2 /HPF Urine Bacteria RARE None Seen /HPF Hemoglobin A1c 5.9 4.0-6.0 % Estimated Average Glucose (eAG) 123 70-126 mg/dL Magnesium Level 1.90 1.80-2.40 mg/dL Troponin I High Sensitivity 6 4-50 ng/L Thyroid Stimulating Hormone (TSH) 3.19 0.36-3.74 uIU/mL Current Medications Medications (Trade) Dose Ordered Sig/Joao Route PRN Reason Start Time Stop Time Status Last Admin Dose Admin Acetaminophen (TYLenol 325MG TAB) 650 mg Q6H PRN PO MILD PAIN (1-3) 02/15/25 14:30 03/17/25 14:29 Amlodipine Besylate (NorvASC 5MG TAB) 5 mg DAILY PO 02/16/25 09:00 03/18/25 08:59 Famotidine (Pepcid 20mg Tab) 20 mg Q24H PO 02/15/25 21:00 02/15/25 16:11 DC Ondansetron HCl (zoFRAN 4MG INJ) 4 mg Q6H PRN IVP NAUSEA/VOMITING 02/15/25 14:30 03/17/25 14:29 Pantoprazole Sodium (PROTonix 40MG INJ) 40 mg Q24H IVP 02/15/25 16:30 03/17/25 16:29 02/15/25 18:02 40 MG Sertraline HCl (ZOloft 50 mg tab) 25 mg DAILY PO 02/16/25 09:00 03/18/25 08:59 Sodium Chloride 1,000 ml @ 50 mls/hr Q20H IV 02/15/25 14:30 03/17/25 14:29 02/15/25 14:30 50 MLS/HR Zolpidem Tartrate (AmbIEN) 5 mg HS PO 02/15/25 21:00 03/17/25 20:59 02/15/25 21:03 5 MG DIAGNOSTICS / RADIOLOGY: [ ] ASSESSMENT: Near-syncope, POA Sinus bradycardia, POA Gastritis as per EGD s/p EGD 02/16/2025 which showed gastritis History of hypertension, POA Hyperlipidemia, POA Anxiety, POA History of uncontrolled GERD, POA Hx of Osteporosis, POA PLAN: Patient was evaluated by the firer helper and per their recommendation evaluate the gastric reflux may have caused a vagal reflex inducing near syncope. 2D echo is pending. Continue telemetry and order two week cardiac mobile security operations center operator as outpatient on discharge. Patient is also s/p EGD today 02/16/2025 as ordered by GI. EGD showed normal proximal esophagus. Normal distal esophagus biopsy. Gastritis, biopsied, normal duodenal bulb and 2nd portion of the duodenum. Biopsy. Patient may return to the hospital on ongoing care. Advance diet as tolerated. Continue to monitor the patient in the meantime. A.m. labs.] We will monitor closely for any malignant cardiac arrhythmia, we will monitor heart rate trend closely Home medication reconciled by INSECTICIDE SUPERVISOR 02/16/2025 We will keep patient on gentle IV hydration with NS at 50 mL/hour Orthostatic vital signs negative We will see how patient progresses in the next 24-48 hours, we will consider Holter monitoring as outpatient as well All labs will be repeated in the morning ATTESTATION BY PHYSICIAN I have seen and examined the patient. I reviewed the documentation, medical decision making, and treatment plan as noted by the mid-level provider above. I agree with the findings and plan of care. SHER NESBITT MD, [facility] Feb 16, 2025 12:38
--- NOTE | 2025-02-16 14:35 | DS ---
Discharge Summary Hospital Course Summary: The patient initially admitted to the hospital 02/15/2025 with the following history of the present illness: This is a 74-year-old female with underlying history of hypertension, h yperlipidemia, GERD who presented to the ER for further evaluation of dizziness and near-syncope. Patient states that she was outside today, talking with her neighbor went she felt lightheaded, dizzy, clammy and felt like she would faint all of a sudden. Patient denies completely blacking out. She felt nauseous and had an episode of vomiting. Patient denies any previous syncopal or presyncopal symptoms. Denies any cardiac comorbidities. She usually walks about a mile a day with no cardiac symptoms. Patient does report having history of hypertension and is maintained on outpatient treatment with amlodipine 5 mg daily. She denies any history of cardiac arrhythmias.. She reports having had issues with acid reflux for several months and is on outpatient treatment with famotidine PRN. Reports having had a upper endoscopy as outpatient close to may or June last year with Dr. Pedraza. Patient denies any fevers, chills, shortness of breath, denies any lower extremity swelling or pleurisy. EMS was called and patient received 200 bolus of NS. Patient on presentation to the hospital here was noted to be afebrile with T-max of 97.9 F, heart rate of 44, blood pressure of 126/52. Labs on presentation including CBC and BMP was unremarkable. EKG showed findin gs of sinus bradycardia in the 40s. HOSPITAL COURSE 02/15 This is a 74-year-old female with underlying history of hypertension, hyperlipidemia, GERD who presented to the ER for further evaluation of dizziness and near-syncope. Patient states that she was outside today, talking with her neighbor went she felt lightheaded, dizzy, clammy and felt like she would faint all of a sudden. Patient denies completely blacking out. She felt nauseous and had an episode of vomiting. Patient denies any previous syncopal or presyncopal symptoms. Denies any cardiac comorbidities. She usually walks about a mile a day with no cardiac symptoms. Patient does report having history of hypertension and is maintained on outpatient treatment with amlodipine 5 mg daily. She denies any history of cardiac arrhythmias.. She reports having had issues with acid reflux for several months and is on outpatient treatment with famotidine PRN. Reports having had a upper endoscopy as outpatient close to may or June last year with Dr. Pedraza. Patient denies any fevers, chills, shortness of breath, denies any lower extremity swelling or pleurisy. 02/16 patient was seen by nurse practitioner physician during rounding in room 310. Patient was evaluated by the customer support manager and per their recommendation evaluate the gastric reflux may have caused a vagal reflex inducing near sync ope. 2D echo is pending. Continue telemetry and order two week cardiac mobile site monitor as outpatient on discharge. Patient is also s/p EGD today 02/16/2025 as ordered by GI. EGD showed normal proximal esophagus. Normal distal esophagus biopsy. Gastritis, biopsied, normal duodenal bulb and 2nd portion of the duodenum. Biopsy. Patient may return to the hospital on ongoing care. Advance diet as tolerated. Continue to monitor the patient in the meantime. A.m. labs.] CAROTID ULTRASOUND REPORTED FOLLOWS: No hemodynamically significant carotid artery stenosis detected by NASCET velocity criteria. * Bilateral calcified plaques at carotid bulbs extending into proximal internal carotid arteries causing mild (1020%) luminal narrowing. * Tortuous right internal carotid artery without flow-limiting stenosis. PATIENT BACK IN THE ROOM FROM HAVING EGD, TOLERATED PROCEDURE WELL, FINDINGS FOLLOWS: -NORMAL PROXIMAL ESOPHAGUS -NORMAL DISTAL ESOPHAGUS. BIOPSIED. -Z-LINE REGULAR, 35 CM FROM THE INCISOR. -GASTRITIS, BIOPSIED. -NORMAL DUODENAL BULB AND 2ND PORTION OF DUODENUM. BIOPSIED. WE WILL FINDINGS DISCUSSED WITH THE PATIENT, ALL QUESTIONS ANSWERED. PATIENT TO BE DISCHARGED HOME TODAY. [employer] Scoreboard Operator(s): [employer] and Cardiology Services Procedure(s): EGD done 04/19/2024 with the findings as follows: -NORMAL PROXIMAL ESOPHAGUS -NORMAL DISTAL ESOPHAGUS. BIOPSIED. -Z-LINE REGULAR, 35 CM FROM THE INCISOR. -GASTRITIS, BIOPSIED. -NORMAL DUODENAL BULB AND 2ND PORTION OF DUODENUM. BIOPSIED. Assessment/Plan: Final diagnosis Near-syncope, POA Sinus bradycardia, POA Gastritis as per EGD s/p EGD 02/16/2025 which showed gastritis History of hypertension, POA Hyperlipidemia, POA Anxiety, POA History of uncontrolled GERD, POA Hx of Osteporosis, POA Discharge Instructions: The patient to be discharged home today, to follow up with primary care physician as an outpatient as well as with GI clinic in one week for results of pathology. Discussed with customer support manager, dejan for the patient to be discharged and follow up as an outpatient tomorrow at [facility] for arrangements of outpatient conveyor monitor. Patient was advised to return to hospital if condition changes. Plan of action discussed with both the patient and the at bedside, both agreed and understood the information provided. Home Medications: Reported Medications Sertraline HCl (Sertraline HCl) 25 Mg Tablet, 25 MG PO DAILY, TAB 04/19/20 Rosuvastatin Calcium (Rosuvastatin Calcium) 5 Mg Tablet, 5 MG PO DAILY, TAB 04/19/20 Amlodipine Besylate (Amlodipine Besylate) 5 Mg Tablet, 5 MG PO DAILY, TAB 04/19/20 Time spent arranging discharge: 31-60 minutes SHER NESBITT MD Feb 16, 2025 14:35
--- NOTE | 2025-02-16 15:10 | NUR ---
DISCHARGE PERIPHERAL IV REMOVED FOR DISCHARGE DISCHARGE EDUCATION AND INSTRUCTIONS PROVIDED TO PATIENT AND FAMILY PATIENT AND FAMILY AWARE TO FOLLOW UP WITH [facility] FOR HEART MONITOR SET UP PATIENT AND FAMILY AWARE OF NEW PRESCRIPTIONS AND TO BLOOD TYPER PRESCRIPTION AT PREFERRED PHARMACY ALL QUESTIONS ANSWERED.
[2025-02-17] MEDS ORDERED: NON-FORMULARY MEDICATION 1 EACH (Sertraline HCl 25 MG) PO SCH (09:00)
[2025-02-17] MEDS ORDERED: amLODIPine 5 MG TAB PO SCH (09:00)
--- NOTE | 2025-02-18 08:03 | HMCSR ---
APPROVED REPORT EXAM: Two-dimensional and M-mode echocardiogram with Doppler and color Doppler. INDICATION ICD: presyncope 2D Dimensions RVDd 3.9 cm LVEF(%) 52.3 (>50%) LVED Vol(simp.) 73.0 mL IVSd 0.7 (0.7-1.1cm) FS(%) 27 % LVES Vol(simp.) 22.0 mL LVDd 4.5 (3.8-5.6cm) LA (2D) 3.5 (1.6-4.0cm) LVEF(%, simp.) 70 % PWd 0.8 (0.7-1.1cm) Ao Root(2D) 3.3 (2.0-3.7cm) LA ESV INDEX (BP) 20.76 mL/m2 LVDs 3.3 (2.5-4.0cm) LVOT diam 2.2 (1.8-2.4cm) IVC diam 1.7 cm Deformation Strain Apical 4 -22.5 % Apical 2 -22.1 % Apical 3 -18.5 % Global Strain -21.0 % M-Mode Dimensions EPSS 0.8 cm LA (MM) 3.4 (1.6-4.0cm) Ao Root(MM) 2.6 (2.0-3.7cm) Aortic Valve AoV Vmax 1.3 m/s Ao Peak GR 6.3 mmHg LVOT Vmax 1.0 m/s AoV VTI 0.3 m Ao Mean GR 3.7 mmHg LVOT VTI 0.22 m MAURICE (VMAX) 2.94 cm2 MAURICE (VTI) 2.7 cm2 Mitral Valve MV E Vmax 66.9 cm/s DECEL Time 229 ms MV A Vmax 82.3 cm/s P 1/2 T 65 ms E/A ratio 0.8 MVA (PHT) 3.4 cm2 TDI E/E' Medial 10.3 E/E' Lateral 7.5 Medial E' Peak V 6.49 cm/s Lateral E' Peak V 8.97 cm/s Pulmonary Valve PV Vmax 0.7 m/s PV VTI 0.16 m PV Mean GR 1.1 mmHg PV Peak GR 1.9 mmHg Tricuspid Valve TR Vmax 2.5 m/s RVSP 23.8 mmHg TR Peak GR 25.3 mmHg Left Ventricle The left ventricle is normal size. There is normal left ventricular wall thickness. LVEF is 60-65%. The left ventricular diastolic function is normal. Right Ventricle The right ventricle is normal size. The right ventricular systolic function is normal. Atria The left atrium size is normal. The inte The right atrium size is normal. Aortic Valve The aortic valve is normal in structure. No aortic regurgitation is present. There is no aortic valvular stenosis. Mitral Valve The mitral valve is normal in structure. Mitral regurgitation is mild. There is no mitral valve stenosis. Tricuspid Valve The tricuspid valve is normal in structure. There is mild tricuspid valve regurgitation noted. Pulmonic Valve Pulmonic valve is not well visualized. There is no pulmonic valvular regurgitation. Great Vessels The aortic root is normal in size. The IVC is normal in size and collapses <50% with inspiration. Pericardium There is no pericardial effusion. Other Information Quality : Average Rhythm : NSR Conclusion LVEF is 60-65%. The left ventricular diastolic function is normal. There is mild tricuspid valve regurgitation noted.
== END 2025-02-16 15:30 | disposition home or self-care (01) | DRG 392 ==
LOC: EDH 12:03 → EDHIP 14:23 → 3BH 19:25
PROVIDERS: ADMIT Internal Medicine; ATTEND Internal Medicine
PROC: 0DB98ZX Excision of Duodenum, Via Natural or Artificial Opening Endoscopic, Diagnostic (ICD-10-PCS; principal; 2025-02-16)
PROC: 0DB78ZX Excision of Stomach, Pylorus, Via Natural or Artificial Opening Endoscopic, Diagnostic (ICD-10-PCS; 2025-02-16)
PROC: 0DB38ZX Excision of Lower Esophagus, Via Natural or Artificial Opening Endoscopic, Diagnostic (ICD-10-PCS; 2025-02-16)
DX: K21.9 Gastro-esophageal reflux disease without esophagitis (principal); E78.00 Pure hypercholesterolemia, unspecified; I10 Essential (primary) hypertension; K29.70 Gastritis, unspecified, without bleeding; R00.1 Bradycardia, unspecified; F41.9 Anxiety disorder, unspecified; R11.15 Cyclical vomiting syndrome unrelated to migraine; E78.5 Hyperlipidemia, unspecified; Z79.899 Other long term (current) drug therapy; Z90.49 Acquired absence of other specified parts of digestive tract; Z90.710 Acquired absence of both cervix and uterus; Z80.41 Family history of malignant neoplasm of ovary
CPT/HCPCS: 36415; 43239; 71045; 80048; 80053; 81001; 83036; 83735; 84443; 84484; 85025; 85610; 85730; 93005; 93306; 93356; 93880; 99285; A4606; G0378; J2003; J2470; J2704; J3490; J7030; A4215; A4222; A4223; A4620